=== PATIENT | male | born 1995 | race Caucasian/White ===

== ENCOUNTER 2022-03-02 20:42 | Emergency (ER) | payer OTHER, SELFPAY ==
--- NOTE | ~2022-03-02 | XR_ITS ---
EXAMINATION: XR WRIST, RIGHT CLINICAL INFORMATION: Fall, pain. COMPARISON: None TECHNIQUE: Four views of the right wrist. FINDINGS: Subtle lucency along the distal radius with intra-articular extension raises the possibility of a nondisplaced fracture. No additional osseous abnormalities. Asymmetric soft tissue swelling along the radial surface of the hand and wrist. No unexpected radiopaque foreign bodies. XR/XR wrist RT 2V IMPRESSION: Questionable nondisplaced intra-articular fracture of the distal radius. Correlate for point tenderness. If indicated, consider further evaluation with a CT.
[2022-03-02 20:53] VITALS: BP 103/48; PULSE 95; RESP 18; TEMP 37.3; O2SAT 98; BMI 23.7
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
[2022-03-03] MEDS: Ketorolac Tromethamine 15 MG/ML VIAL 30 MG IM (00:51)
== END 2022-03-03 01:12 | disposition home or self-care (01) ==
PROVIDERS: Emergency Provider Emergency Medicine
DX: S52.501A Unspecified fracture of the lower end of right radius, initial encounter for closed fracture (principal); M79.601 Pain in right arm; V29.408A Other motorcycle driver injured in collision with unspecified motor vehicles in traffic accident, initial encounter; Y93.9 Activity, unspecified; Y92.410 Unspecified street and highway as the place of occurrence of the external cause; Y99.9 Unspecified external cause status
CPT/HCPCS: 73100; 96372; 99283; 99284; J1885

== ENCOUNTER 2022-03-10 | Outpatient (REF) | payer OTHER, SELFPAY ==
--- NOTE | ~2022-03-10 | XR_ITS ---
EXAMINATION: XR wrist RT min 3V CLINICAL INFORMATION: Reason for Exam M25.531 - Pain in right wrist COMPARISON: None. TECHNIQUE: AP, lateral, and oblique views of the wrist FINDINGS: Redemonstration of a subtle intra-articular lucency in the distal radial metaphysis suspicious for a nondisplaced intra-articular distal radial fracture. Joint spaces are maintained without significant degenerative change. No soft tissue abnormality. XR/XR wrist RT min 3V IMPRESSION: Redemonstration of a subtle intra-articular lucency in the distal radial metaphysis suspicious for a nondisplaced intra-articular distal radial fracture.
== END 2022-03-10 00:01 | disposition home or self-care (01) ==
LOC: HO.HOSX
PROVIDERS: Visit Provider Physician Assistant
DX: S52.501A Unspecified fracture of the lower end of right radius, initial encounter for closed fracture (principal)
CPT/HCPCS: 25600; 29085; 73110

== ENCOUNTER 2022-03-17 12:06 | Outpatient (REF) | payer OTHER, SELFPAY ==
--- NOTE | ~2022-03-17 | XR_ITS ---
EXAMINATION: XR WRIST, RIGHT CLINICAL INFORMATION: Right wrist pain COMPARISON: 03/10/2022 TECHNIQUE: PA, lateral, and oblique views of the right wrist. FINDINGS: Again seen are changes of a fracture through the distal radius extending into the joint space. No other fractures are seen. XR/XR wrist RT min 3V IMPRESSION: Distal radial fracture with intra-articular extension.
== END 2022-03-17 12:07 | disposition home or self-care (01) ==
LOC: HO.HOSX 12:06
PROVIDERS: Visit Provider Physician Assistant
DX: S52.501D Unspecified fracture of the lower end of right radius, subsequent encounter for closed fracture with routine healing (principal)
CPT/HCPCS: 29085; 73110

== ENCOUNTER → 2022-04-08 10:41 | Outpatient (BNVA) | payer OTHER, SELFPAY | PROVIDERS: Visit Provider Physician Assistant | DX: S52.501A Unspecified fracture of the lower end of right radius, initial encounter for closed fracture (principal) | CPT/HCPCS: 29085 ==

== ENCOUNTER 2022-04-21 07:07 | Outpatient (REF) | payer OTHER, SELFPAY ==
--- NOTE | ~2022-04-21 | XR_ITS ---
EXAMINATION: XR wrist RT min 3V CLINICAL INFORMATION: Reason for Exam M25.531 - Pain in right wrist COMPARISON: None. TECHNIQUE: AP, lateral, and oblique views of the wrist FINDINGS: Healing intra-articular fracture of the distal radius with decreased conspicuity of the fracture margins, in unchanged alignment. Joint spaces are maintained without significant degenerative change. No soft tissue abnormality. XR/XR wrist RT min 3V IMPRESSION: Healing intra-articular fracture of the distal radius with decreased conspicuity of the fracture margins, in unchanged alignment.
== END 2022-04-21 07:08 | disposition home or self-care (01) ==
LOC: HO.HOSX 07:07
PROVIDERS: Visit Provider Physician Assistant
DX: M25.531 Pain in right wrist (principal)
CPT/HCPCS: 73110

== ENCOUNTER 2022-05-17 13:05 | Emergency (ER) | payer OTHER, SELFPAY ==
--- NOTE | ~2022-05-17 | XR_ITS ---
EXAMINATION: XR LUMBOSACRAL SPINE CLINICAL INFORMATION: Low back pain, heard pop COMPARISON: None TECHNIQUE: AP and lateral views of the lumbar spine and lateral view of the lumbosacral junction. FINDINGS: Vertebral body heights are normal. No fracture or spondylolisthesis. Intervertebral disc heights are maintained without significant degenerative disc disease. Bone mineralization is normal. Soft tissues are unremarkable. Imaged portions of the sacroiliac joints are normal. XR/XR lumbar spine 2-3V IMPRESSION: Normal lumbar spine radiographs
[2022-05-17 13:10] VITALS: BP 138/50; PULSE 90; RESP 18; TEMP 36.9; O2SAT 100; BMI 21.7
--- NOTE | 2022-05-17 13:10 | ED_ITS ---
HPI - Back Pain/Injury General Chief Complaint: Back Pain/Injury <TIA Calderon - Last Filed: 05/17/22 13:13> Stated Complaint: Lower back pain <TIA Calderon - Last Filed: 05/17/22 13:13> Time Seen by Provider: 05/17/22 13:31 <TIA Calderon - Last Filed: 05/17/22 13:13> Source: patient <Sarah Li MD - Last Filed: 05/17/22 14:14> Mode of arrival: ambulatory <Sarah Li MD - Last Filed: 05/17/22 14:14> Limitations: no limitations <Sarah Li MD - Last Filed: 05/17/22 14:14> History of Present Illness HPI Narrative: Patient comes to the emergency room complaining of left-sided back pain that started approximately 4 hours ago, after patient tried having 50+ lb at work. Patient denies any falls, no midline pain. Patient has not taking any medications since this started. Patient denies any urinary/fecal incontinence- retention. Patient is nonradiating, worsened by certain back movements such as straightening up his back <Sarah Li MD - Last Filed: 05/17/22 14:14> Related Data Home Medications: Previous Rx's Medication Instructions Recorded acetaminophen 500 mg tablet 500 mg PO QID PRN fever or pain 05/17/22 #20 tabs cyclobenzaprine 10 mg tablet 10 mg PO TID PRN muscle spasm #7 05/17/22 tabs ketorolac 10 mg tablet 10 mg PO BID PRN pain 5 days #8 05/17/22 tabs <TIA Calderon - Last Filed: 05/17/22 13:13> Allergies/Adverse Reactions: Allergies Allergy/AdvReac Type Severity Reaction Status Date / Time amoxicillin Allergy Unknown Verified 04/21/22 09:39 <TIA Calderon - Last Filed: 05/17/22 13:13> Review of Systems Review of Systems: Constitutional : No Weight loss, No Fever, No Chills, No Night Sweats, No Fatigue, No Malaise ENT/Mouth : No Hearing loss, No Ear Pain, No Nasal Congestion, No Sinus Pain, No Hoarseness, No sore throat, No Rhinorrhea, No Swallowing Difficulty Eyes: No Eye Pain, No Swelling, No Redness, No Foreign Body, No Discharge, No Vision Changes Cardiovascular : No Chest Pain, No SOB, No Dyspnea on Exertion, No Orthopnea, No Edema, No Palpitations Respiratory : No Cough, No Sputum, No Wheezing, No Smoke Exposure, No Dyspnea Gastrointestinal : No Nausea, No Vomiting, No Diarrhea, No Constipation, No abdominal Pain, No Hematochezia, No Melena Genitourinary : no irregular bleeding, No Dysuria, No Urinary Frequency, No Hematuria, No Urinary Incontinence, No Urgency, No Flank Pain, No Urinary Flow Changes, No Hesitancy Musculoskeletal : Complaining of left middle back pain, No joint pain, No Myalgias, No Joint Swelling Skin : No Skin Lesions, No rash Neuro : No Weakness, No Numbness, No Paresthesias, No Loss of Consciousness, No Dizziness, No Headache Psych : No Anxiety/Panic, No Depression, No SI/HI/AH/VH, No Social Issues, Heme/Lymph: No Bruising, No Bleeding,No Lymphadenopathy Endocrine : No Polyuria, No Polydipsia, No Temperature Intolerance <Sarah Li MD - Last Filed: 05/17/22 14:14> [facility] Social History Social History: Social History (Reviewed 04/08/22 @ 10:58 by Vanessa Bui [facility]) Patient Tobacco Use Status: Never used Tobacco Substance Use Type: Marijuana Advance Directives: No Advance Directives Information Provided: No 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, 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 <TAI Calderon - Last Filed: 05/17/22 13:13> Physical Exam Vital Signs: Vital Signs: Last Vital Signs Temp 98.4 F 05/17/22 13:10 Pulse 90 05/17/22 13:10 Resp 18 05/17/22 13:10 BP 138/50 L 05/17/22 13:10 Pulse Ox 100 05/17/22 13:10 O2 Del Method 05/17/22 13:10 BMI result Body Mass Index 21.7 <TIA Calderon - Last Filed: 05/17/22 13:13> Vital Signs: Last Vital Signs Temp 98.4 F 05/17/22 13:10 Pulse 90 05/17/22 13:10 Resp 18 05/17/22 13:10 BP 138/50 L 05/17/22 13:10 Pulse Ox 100 05/17/22 13:10 O2 Del Method 05/17/22 13:10 BMI result Body Mass Index 21.7 <Sarah Li MD - Last Filed: 05/17/22 14:14> Const: Other: Appearance: Alert. Oriented X3. No acute distress. Eyes: Pupils equal, round and reactive to light. ENT: Pharynx normal. Neck: Normal inspection. Neck supple. No lymph nodes noted. No crepitus CVS: Normal heart rate and rhythm. Pulses normal. Normal S1 and S2 Respiratory: No respiratory distress. Breath sounds normal. No Wheezing. No rales Abdomen: Soft and nontender. No rigidity. No distention. Back: No pain to palpation in cervical/thoracic/lumbar spine. Pain to palpation along the paraspinal muscles on the left side, actively spasming Skin: Skin warm and dry. Normal skin color. Normal skin turgor. Extremities: No lower extremity edema. No Lacerations. No Rash Neuro: Oriented X 3. No motor deficit. No sensory deficit. Moving all extremities. No slurred speech. CN 2 through 12 grossly intact Psych: calm, cooperative, normal affect <Sarah Li MD - Last Filed: 05/17/22 14:14> Course Course Course Narrative: RME-- 27yo M w/no sig PMHx c/o R sided low back pain and hearing pop s/p heavy lifting at work. Denies radiation of pain, incontinence or retention, dysuria/hematuria No midline ttp, R MSK lumbar tenderness elicited. Ambulating with steady gait Lumbar x-ray ordered <TIA Calderon - Last Filed: 05/17/22 13:13> Medical Decision Making Medical Decision Making [facility] Narrative: Patient likely having a musculoskeletal injury of the paraspinal muscles. Patient given IM Toradol and cyclobenzaprine p.o. <Sarah Li MD - Last Filed: 05/17/22 14:14> Differential Diagnosis Differential Diagnoses: The differential diagnosis associated with the presentation includes (Pulled muscle, herniated disc) <Sarah Li MD - Last Filed: 05/17/22 14:14> Independent Interpretation I performed an independent interpretation of an: Plain X-Ray (Thoracic spine/coccyx x-ray normal alignment, no fractures) <Sarah iL MD - Last Filed: 05/17/22 14:14> Radiology Impression Discussion of test interpretation with radiology: I have reviewed the radiologist's reading. <Sarah Li MD - Last Filed: 05/17/22 14:14> Radiologist Impression: FINDINGS: Vertebral body heights are normal. No fracture or spondylolisthesis. Intervertebral disc heights are maintained without significant degenerative disc disease. Bone mineralization is normal. Soft tissues are unremarkable. Imaged portions of the sacroiliac joints are normal. XR/XR lumbar spine 2-3V IMPRESSION: Normal lumbar spine radiographs <Sarah Li MD - Last Filed: 05/17/22 14:14> Discharge Plan Discharge Clinical Impression: Back strain <TIA Calderon - Last Filed: 05/17/22 13:13> Patient Disposition: Home, Self-Care <TIA Calderon - Last Filed: 05/17/22 13:13> Instructions: Thoracic Back Strain (ED) <TIA Calderon - Last Filed: 05/17/22 13:13> Additional Instructions: Please follow-up with your primary care physician and with work connection tomorrow. If you have any worsening or new symptoms, please return to the emergency room or call 911 <TIA Calderon - Last Filed: 05/17/22 13:13> Prescriptions: New ketorolac 10 mg tablet 10 mg PO BID PRN (Reason: pain) 5 Days Qty: 8 0RF Rx Instructions: Do not use ibuprofen/naproxen/NSAIDs. Only use Tylenol if needed cyclobenzaprine 10 mg tablet 10 mg PO TID PRN (Reason: muscle spasm) Qty: 7 0RF acetaminophen 500 mg tablet 500 mg PO QID PRN (Reason: fever or pain) Qty: 20 0RF <TIA Calderon - Last Filed: 05/17/22 13:13> Stand Alone Forms: Work/School Release <TIA Calderon - Last Filed: 05/17/22 13:13>
[2022-05-17] MEDS: Ketorolac Tromethamine 60 MG/2 ML VIAL IM (14:23)
[2022-05-17] MEDS: Cyclobenzaprine HCl 10 MG TABLET PO (14:23)
== END 2022-05-17 14:35 | disposition home or self-care (01) ==
PROVIDERS: Emergency Provider Emergency Medicine
DX: S39.012A Strain of muscle, fascia and tendon of lower back, initial encounter (principal); X50.0XXA Overexertion from strenuous movement or load, initial encounter; Y93.E9 Activity, other interior property and clothing maintenance; Y92.511 Restaurant or cafe as the place of occurrence of the external cause; Y99.0 Civilian activity done for income or pay
CPT/HCPCS: 72100; 96372; 99283; 99284; J1885

== ENCOUNTER 2024-06-05 08:45 | Outpatient (REF) | payer OTHER, SELFPAY ==
--- NOTE | ~2024-06-05 | XR_ITS ---
CLINICAL HISTORY: M25.569 - Pain in unspecified knee 2 views left knee, 1 view right knee Comparison: None Findings: Standing AP right knee: Medial and lateral knee compartments preserved. Standing AP, sunrise views left knee: No fractures, subluxations or dislocations. Joint intervals are preserved. No osteochondral lesions or loose bodies. Normal patellar alignment. Normal bone mineralization and soft tissues. No unusual radiopaque foreign body. Impression: 1. Normal left knee. 2. Normal AP view right knee. This document has been electronically signed by: Shine Pennington MD on 06/05/2024 11:59:10
--- OUTSIDE RECORDS SUMMARY | 2024-06-06 09:37 | XMS_ITS | Encounter Summary ---
Author Organization [facility] Address [address] [place] [address] Care Team Providers Care Educational Technology Specialist Name Role Phone Physician, No Pcp Primary Care Provider Unavaila ble Reason for Referral * Consultation (Routine) - Pending Review Specialty Diagnoses / Procedures Referred By Suri benz Referred To Contact Orthopaedics / Orthopaedic Surgery Diagnoses Acute pain of left knee Loretta Ferrer PA [address] [place] [address] Referral ID Status Reason Start Date Expiration Date Visits Requested Visits Authorized [id number] Pending Review Specialty Services Required 05/21/2024 05/21/2025 1 1 Reason for Visit * Reason Comments Knee Pain C/o Left knee pain a fter slip and fall ice fishing- onset yesterdaY Encounter Details Date Type Department Care Team (Late st Contact Info) Description 05/21/2024 10:37 AM EST - 05/21/2024 11:[address] [facility] Emergency [address] [place] [id number] Acute pain of left knee (Primary Dx) [...] Signed Date: 05/21/2024 10:21 ET Workstation ID: [id number] Transcribed By: Self Edit Transcribed Date: 05/21/2024 [...] Laterality Modality Lower Extremities, Knee Left [facility] Imaging 05/21/2024 9:59 AM EST Impressions 05/21/2024 10:21 AM EST FINDINGS/IMPRESSION: Joint spaces are preserved. ??No fracture or dislocation. ??No focal soft tissue swelling. ??Small joint effusion.. -------- FINAL REPORT -------- Dictated By: GRACE FAM Dictated Date: 05/21/2024 09:59 ET Assigned Physician: GRACE FAM Reviewed and Electronically Signed By: GRACE FAM Signed Date: 05/21/2024 10:21 ET Workstation ID: [id number] Transcribed By: Self Edit Transcribed Date: 05/21/2024 [...] Signed Date: 05/21/2024 10:21 ET Workstation ID: [id number] Transcribed By: Self Edit Transcribed Date: 05/21/2024 09:59 ET Rowdy Garcia MD IMG XR PROCEDURES documented in this encounter Visit Diagnoses Diagnosis Acute pain of left knee- Primary documented in this encounter Care Teams Educational Technology Specialist Relationship Specialty Start Date End Date Physician, No Pcp PCP - General 05/21/24 documented as of this encounter
--- OUTSIDE RECORDS SUMMARY | 2024-06-06 09:37 | XMS_ITS | Clinical Summary ---
Author Organization [facility] Address [address] [place] [address] Phone Care Team Providers Care Appraiser Art Name Role Phone Physician, No Pcp Primary Care Provider Unavaila ble Allergies Active Allergy Reactions Criticality Noted Date Comments Amoxicillin Unknown 05/21/2024 Medications Medication Sig Dispensed Refills Start Date End Date Status naproxen (NAPROSYN) 500 mg tablet Take 1 tablet (500 mg total) by mouth 2 (two) times a day with meals for 15 days. 30 tablet 05/21/2024 06/05/2024 Encounters Date Type Department Care Team Description 05/21/2024 10:37 AM EST - 05/21/2024 11:42 AM EST Emergency [facility] Emergency [address] [place] [address] Acute pain of left knee [...] - 19+ 3-dose series) 02/27/2015 COVID-19 Vaccine ( - 2023-2 5 season) 2024 Influenza Vaccine [...] Laterality Modality Lower Extremities, Knee Left [facility] Imaging 05/21/2024 9:59 AM EST Impressions 05/21/2024 10:21 AM EST FINDINGS/IMPRESSION: Joint spaces are preserved. ??No fracture or dislocation. ??No focal soft tissue swelling. ??Small joint effusion.. -------- FINAL REPORT -------- Dictated By: GRACE LEE Dictated Date: 05/21/2024 09:59 ET Assigned Physician: GRACE LEE Reviewed and Electronically Signed By: GRACE LEE Signed Date: 05/21/2024 10:21 ET Workstation ID: [id number] Transcribed By: Self Edit Transcribed Date: 05/21/2024 [...] Signed Date: 05/21/2024 10:21 ET Workstation ID: [id number] Transcribed By: Self Edit Transcribed Date: 05/21/2024 09:59 ET Rowdy Garcia MD IMG XR PROCEDURES from Last 3 Months Care Teams Appraiser Art Relationship Specialty Start Date End Date Physician, No Pcp PCP - General 05/21/24
--- OUTSIDE RECORDS SUMMARY | 2024-06-06 09:37 | XMS_ITS | Data Portability ---
Author Organization [facility] [address] Address [address] [place] [address] Care Team Providers Care Fibre Technologist Name Role Phone DEEPA PEREZ Superintendent [employer] DEEPA PEREZ Superintendent [employer] DEEPA PEREZ Superintendent [employer] Assessment No assessment recorded. Plan of Treatment Reminders Order Date Submit Date Provider Last Modified By Organization Details Last Modified Time Details Appointments None recorded. Lab None recorded. Referral None recorded. Procedures None recorded. Surgeries None recorded. Imaging None recorded. Medication Orders prednisone 10 mg tablet 2022 024 [id number], [address] [place], [address], 4 12:21:41 prednisone 20 mg tablet 2023 024 [id number] [address] [place], [address], 4 08:55:50 prednisone 10 mg tablet 2023 024 [facility], [address] [place], [address], 4 09:17:50 hydroxyzine HCl 25 mg tablet 2023 024 [facility], [address] [place], [address], 4 09:17:51 Patient TargetsNo targets recorded. Patient Instructions Encounter Date Encounter Id Patient Instructions Last Modified By Organization Details Last Modified Time 06/04/2022 [id number] Drink lots of fluids. Take medications as [...] Department. [email or web address] Not available 06/04/2022 16:18:39 12/31/2022 [id number] poison [place], [place], [place]: care instructions [email or web address] Not available 12/31/2022 15:43:46 poison [place] education Not available 12/31/2022 15:43:46 Take the prednisone [...] chills, spreading skin redness or purulent drainage. [email or web address] Not available 12/31/2022 15:45:28 10/03/2023 [id number] poison [place], [place], and [place]: care instructions [email or web address] Not available 10/03/2023 14:19:41 poison [place] education [email or web address] Not available 10/03/2023 14:19:41 You can take ove r the counter tylenol or ibuprofen per package instructions for the pain. See printed instructions. Follow-up with your doctor if no improvement in 1 week. Seek Emergency Medical evaluation for any worsening symptoms. [email or web address] Not available 10/03/2023 14:21:21 Reason for Referral None Reported. Problems Name Problem SNOMED Code Status Onset Date Resolution Date Notes Provider Name and Address Organization Details Recorded Time Contact dermatitis caused by urushiol from [place] poison [place] [id number] Active 024 Jose Horowitz, STRUCTURAL STEEL FITTER [address] [place], [address] , [place] - [facility] 4 09:09:21 [...] Name and Address Organization Details Recorded Time [id number] amoxicill in medicatio n Not available Not available unabletoasse ss 06/04/2022 723 RxNorm DUC BENNIE [facility], [place] - [facility] 3 15:45:08 [...] Details Last Updated DateTime 12/31/2022 21.8 kg/m2 17344.74 g Silvana Lang PA - [facility] [...] Details Last Updated DateTime 10/03/2023 22.4 kg/m2 19834.7 g Christine Lewis PA - [facility] [...] Details Last Updated DateTime 06/04/2022 21.8 kg/m2 90958.74 g DUC AVERY PA - [facility] [...] Details Last Updated DateTime 11/17/2023 23.1 kg/m2 18473.66 g Queta Kelly [facility] - [facility] [...] Had A Flu Shot This Season? No [email or web address] Information not available 11/17/2023 Have You Had Direct Contact, Or Contact During Intimacy, With Monkeypox Rash, Scabs, Or Body Fluids From A Person With Monkeypox? No Information not available 10/03/2023 What Was The Date Of Your Most Recent Tobacco Screening? 11/17/2023 [email or web address] Information not available 11/17/2023 What Is Your [...] SNOMED-CT Code Diagnosis ICD10 Code Diagnosis Note [id number] [address] [place] [address] 10/19/2020 13:41:28 10/19/2020 15:30:57 [id number] [address] [place] [place] [address] 11/21/2020 12:10:07 11/21/2020 15:09:56 [id number] [place] [address] [place] [address] 06/04/2022 14:28:32 06/04/2022 16:24:30 Acute low back pain 509658086 M54.50 feeling much better . able to return full duty back to work. [id number] Eliana Betancourt [place] [address] [place] [address] 12/31/2022 14:37:39 12/31/2022 15:47:31 Contact dermatitis caused by urushiol from [place] poison [place] 293080822 L25.5 [id number] IVAN GARCIA MD [address] [place] [address] 10/03/2023 11:58:55 10/03/2023 14:23:45 Contact dermatitis caused by urushiol from [place] 747420974 L25.5 Benadryl Gel for itching:Ap ply to affected area 3 times a day as needed for itching for 3-5 days. [id number] [place] Horowitz [place] [address] [place] [address] 11/17/2023 08:51:17 11/17/2023 09:19:05 Contact dermatitis caused by urushiol from [place] poison [place] 318654538 L25.5 Poison [place] mac Rash The contact dermatitis usually follows [...] exposure; erythema, edema, vesicles, bullae, weeping, and crusting.?Nishant matitis usually responds to 7 to 21 days' therapy Important instructio ns to follow:?- Avoid further irritation of the skin where you have contact dermatitis . Health Concerns Section Related Observation LastModified by Organization Detai ls LastModified Time None Recorded Concern Status LastModified by Organization Details LastModified Time None Recorded Advance Directives Directive None Recorded Payers Encounter Date Sequence Insurance Name Policy Number Policy Jameson Covered Member ID Jameson Member ID Guarantor Name 11/21/2020 1 [employer] (PPO) Ralf Saleh [id number] Ralf Saleh 06/04/2022 1 [employer] John Saleh 12/31/2022 1 [facility] - [employer] - C[employer] (PPO) Ralf Saleh [id number] Ralf Saleh 10/03/2023 1 [employer] [facility] Ralf Saleh [id number] Ralf Saleh 11/17/2023 1 [employer] - [facility] (PPO) [id number] Ralf Saleh [id number] Ralf Saleh Notes Date Note Type Note [...] Jose Horowitz NP [address] [place], [address], [place] - [facility] 06/04/2022 16:20:38 3 [...] or red streaking. Eliana Betancourt MD [address] [place], [address], [place] - [facility] 12/31/2022 15:50:50 4 text/html 28 yo male was weed whacking 4 days ago and a rash developed on his arms and legs 3 days ago. The rash is Increasing spread and itching. IVAN GARCIA MD [address] [place], [address], [place] - [facility] 10/04/2023 17:17:37 4 text/html UC Rash/Skin LesionReported bypatient.source of patient [...] Jose Horowitz NP [address] [place], [address], [place] - [facility] 11/28/2023 13:30:38
== END 2024-06-05 08:46 | disposition home or self-care (01) ==
LOC: HO.HOSX 08:45
PROVIDERS: Visit Provider Physician Assistant
DX: M25.562 Pain in left knee (principal); M23.92 Unspecified internal derangement of left knee; M25.462 Effusion, left knee
CPT/HCPCS: 20610; 73560

== ENCOUNTER 2024-06-05 09:05 | Outpatient (AMB) | payer OTHER, SELFPAY ==
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
[2024-06-05 09:20] VITALS: BMI 24.4
--- OUTSIDE RECORDS SUMMARY | 2024-06-05 09:32 | XMS_ITS | Clinical Summary ---
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 30 tablet 05/21/2024 06/05/2024 Active Encounters Date Type Department Care Team Description 05/21/2024 10:37 AM EST - 05/21/2024 11:42 AM EST Emergency [facility] Emergency [address] [place] [address] Acute pain of left knee (Primary Dx) Discharge Disposition: Home or Self Care from Last 3 Months Medical History Medical History Date Comments Known health problems: none Social History Tobacco Use Types Packs/Day Years Used Date Smoking Tobacco: Never Assessed Sex and Gender Information Value Date Recorded Sex Assigned at Not on file Gender Identity Not on file Sexual Orientation Not on file Job Start Date Occupation Industry Not on file Not on file Not on file Obstetrics History Last Filed Vital Signs Vital Sign Reading Time Taken Comments Blood Pressure 119/63 05/21/2024 9:42 AM EST Pulse 80 05/21/2024 9:42 AM EST Temperature 36.8 ??C (98.2 ??F) 05/21/2024 9:42 AM ES T Respiratory Rate 18 05/21/2024 9:42 AM EST Oxygen Saturation 99% 05/21/2024 9:42 AM EST Inhaled Oxygen Concentration - - Weight 77.1 kg (170 lb) 05/21/2024 9:42 AM EST Height 185.4 cm (6' 1 ) 05/21/2024 9:42 AM EST Body Mass Index 22.43 05/21/2024 9:42 AM EST Plan of Treatment Health Maintenance Due Date Last Done Comments Hepatitis B Vaccines (1 of 3 - 19+ 3-dose series) 02/27/2015 COVID-19 Vaccine (1 - 2023-2 5 season) 2024 Influenza Vaccine (#1) 2024 Depression Screening 05/21/2024 HIV Screening 05/21/2024 Hepatitis C Screening 05/21/2024 Social Influencers of Health Screening 05/21/2024 DTaP,Tdap,and Td Vaccines (2 - Td or Tdap) 10/19/2030 10/19/2020 HIB Vaccines Aged Out No longer eligi ble based on patient's age to complete this topic HPV Vaccines Aged Out No longer eligi ble based on patient's age to complete this topic Hepatitis A Vaccines Aged Out No long er eligible based on patient's age to complete this topic IPV Vaccines Aged Out No longer eligi ble based on patient's age to complete this topic MMR Vaccines Aged Out No longer eligi ble based on patient's age to complete this topic Meningococcal ACWY Vaccine Aged Out N o longer eligible based on patient's age to complete this topic Pneumococcal Vaccine: Pediat rics (0 to 5 Years) and At-Risk Patients (6 to 64 Years) Aged Out No longer eligi ble based on patient's age to complete this topic RSV Immunization Patients Un kathleen 20 months Aged Out No longer eligible b ased on patient's age to complete this topic Varicella Vaccines Aged Out No longer eligible based on patient's age to complete this topic Procedures Procedure Name Priority Date/Time Associated Diagnosis Comments XR KNEE 4+ VIEWS LEFT STAT 05/21/2024 9:57 AM EST from Last 3 Months Results * XR Knee 4+ Views Left (05/21/2024 9:57 AM EST) Anatomical Region Laterality Modality Lower Extremities, Knee Left [facility] 05/21/2024 9:59 AM EST Impressions 05/21/2024 10:21 AM EST FINDINGS/IMPRESSION: Joint spaces are preserved. ??No fracture or dislocation. ??No focal soft tissue swelling. ??Small joint effusion.. -------- FINAL REPORT -------- Dictated By: GRACE LEE Dictated Date: 05/21/2024 09:59 ET Assigned Physician: GRACE LEE Reviewed and Electronically Signed By: GRACE LEE Signed Date: 05/21/2024 10:21 ET Workstation ID: [id number] Transcribed By: Self Edit Transcribed Date: 05/21/2024 09:59 ET Narrative 05/21/2024 10:21 AM EST XR KNEE 4+ VIEWS LEFT INDICATION: ??Pain TECHNIQUE: XR KNEE 4+ VIEWS LEFT COMPARISON: No priors available. Procedure Note Grace Lee MD - 05/21/2024 XR KNEE 4+ VIEWS LEFT INDICATION: Pain TECHNIQUE: XR KNEE 4+ VIEWS LEFT COMPARISON: No priors available. IMPRESSION: FINDINGS/IMPRESSION: Joint spaces are preserved. No fracture ordislocation. No focal soft tissue swelling. Small joint effusion.. -------- FINAL REPORT -------- Dictated By: GRACE LEE Dictated Date: 05/21/2024 09:59 ET Assigned Physician: GRACE LEE Reviewed and Electronically Signed By: GRACE LEE Signed Date: 05/21/2024 10:21 ET Workstation ID: [id number] Transcribed By: Self Edit Transcribed Date: 05/21/2024 09:59 ET Rowdy Garcia MD IMG XR PROCEDURES from Last 3 Months Care Teams Senior Piping Designer Relationship Specialty Start Date End Date Physician, No Pcp PCP - General 05/21/24
--- OUTSIDE RECORDS SUMMARY | 2024-06-05 09:32 | XMS_ITS | Data Portability ---
Author Organization [facility], [address] Address [address] [place] [address] Care Team Providers Care [employer] Name Role Phone DEEPA PEREZ [employer] Middleware Developer DEEPA PEREZ [employer] Middleware Developer DEEPA PEREZ [employer] Middleware Developer Assessment No assessment recorded. Plan of Treatment Reminders Order Date Submit Date Provider Last Modified By Organization Details Last Modified Time Details Appointments None recorded. Lab None recorded. Referral None recorded. Procedures None recorded. Surgeries None recorded. Imaging None recorded. Medication Orders prednisone 10 mg tablet 2022 024 [id number], [address] [place], [address], 4 12:21:41 prednisone 20 mg tablet 2023 024 [id number] [address] [place], [address], 4 08:55:50 prednisone 10 mg tablet 2023 024 [id number], [address] [place], [address], 4 09:17:50 hydroxyzine HCl 25 mg tablet 2023 024 [id number], [address] [place], [address], 4 09:17:51 Patient TargetsNo targets recorded. Patient Instructions Encounter Date Encounter Id Patient Instructions Last Modified By Organization Details Last Modified Time 06/04/2022 [id number] Drink lots of fluids. Take medications as prescribed. Do not do any activities that exacerbate your pain. Take walks and change positions frequently. Do not lie in bed all day. Light movement is helpful for recovery of the back. Use a heating pad or warm compress on the painful area of the back. A lidocaine patch can be used for topical relief. This is available over the counter. Once pain is improved, do back exercises to stretch and strengthen the back. If you develop severe pain, fevers/chills, weakness of limbs, loss of sensation in groin, or loss of control of bowel or bladder functions call 911 or go to the Emergency Department. [email or web address] Not available 06/04/2022 16:18:39 12/31/2022 [id number] poison [place], [place], and [place]: care instructions [email or web address] Not available 12/31/2022 15:43:46 poison [place] education [email or web address] Not available 12/31/2022 15:43:46 Take the prednisone as prescribed. Over the counter benadryl may be taken per package instructions for itching. Topical calamine lotion may also be used for itching. See printed instructions. Follow-up with your doctor if no improvement in a few days. Seek Emergency Medical evaluation for any worsening symptoms, particularly for lip or tongue swelling, trouble breathing, high fever, shaking chills, spreading skin redness or purulent drainage. [email or web address] Not available 12/31/2022 15:45:28 10/03/2023 [id number] poison [place], [place], and [place]: care instructions [email or web address] Not available 10/03/2023 14:19:41 poison [place] education [id number] Not available 10/03/2023 14:19:41 You can take ove r the counter tylenol or ibuprofen per package instructions for the pain. See printed instructions. Follow-up with your doctor if no improvement in 1 week. Seek Emergency Medical evaluation for any worsening symptoms. [email or web address] Not available 10/03/2023 14:21:21 Reason for Referral None Reported. Problems Name Problem SNOMED Code Status Onset Date Resolution Date Notes Provider Name and Address Organization Details Recorded Time Contact dermatitis caused by urushiol from [place] poison [place] [id number] Active 024 Jose Horowitz, ELECTRONICS SPECIALIST [address] [place], [address] [place] - [facility] 4 09:09:21 Problem Notes None recorded. Procedures Surgical History Date Name Laterality Status Provider Name and Address Organization Details Recorded Time procedure on ear completed DUC BENNIE PA - [facility] 06/04/2022 15:47:08 Imaging Results None recorded. Procedure Notes None recorded. Medical Equipment None Reported. Allergies Allergen ID Allergen Name Allergen Category Reaction Reaction Severity Criticality Documentation Date Start Date Code Code System Note Provider Name and Address Organization Details Recorded Time [id number] amoxicill in medicatio n Not available Not available unabletoasse ss 06/04/2022 723 RxNorm DUC BENNIE [facility], [place] - [facility] 3 15:45:08 Medications Name Sig Start Date Stop Date Status Note LastModified by Organization Details LastModified Time cyclobenzap rine 10 mg tablet TAKE 1 TABLET BY MOUTH THREE TIMES A DAY NEEDED FOR MUSCLE SPAMS 06/04 completed Not Available Not Available Not Available prednisone 10 mg tablet PLEASE SEE ATTACHED FOR DETAILED DIRECTION S active Not Available Not Available No t Available prednisone 20 mg tablet TAKE 3 TABLETS EVERY DAY BY ORAL ROUTE IN THE MORNING FOR 5 DAYS, FOR POISON [place] RASH. active Not Available Not Available No t Available ketorolac 10 mg tablet TAKE 1 TABLET TWICE A DAY NEEDED FOR PAIN FOR 5 DAYS. DO NOT USE IBUPROFEN /NAPROXEN / NSAIDS 06/04 completed Not Available Not Available Not Available hydroxyzine HCl 25 mg tablet TAKE 1 TABLET 3 TIMES A DAY BY ORAL ROUTE NEEDED FOR 7 DAYS, FOR ITCHY RASH. active Not Available Not Available No t Available Vitals Date Recorded Body height Provider Name an d Address Organization Details Last Updated DateTime 12/31/2022 185.42 cm Silvana Lang PA - [facility] 12/31/2022 14:59:45 Date Recorded Body mass index (BMI) Body weight Provider Name and Address Organization Details Last Updated DateTime 12/31/2022 21.8 kg/m2 68581.74 g Silvana Lang PA - [facility] 12/31/2022 14:59:54 Date Recorded Respiratory rate Provider Name a nd Address Organization Details Last Updated DateTime 12/31/2022 18 /min Silvana Lang PA - [facility] 12/31/2022 15:00:28 Date Recorded Body temperature Provider Name a nd Address Organization Details Last Updated DateTime 12/31/2022 98 [degF] Silvana Lang PA - [facility] 12/31/2022 15:00:31 Date Recorded Heart rate Provider Name an d Address Organization Details Last Updated DateTime 12/31/2022 64 /min Silvana Lang PA - [facility] 12/31/2022 15:00:35 Date Recorded Pain severity - 0-10 verbal numeric rating [Score] - Reported Provider Name and Address Organization Details Last Updated DateTime 12/31/2022 0 Silvana Lang PA - [facility] 12/31/2022 15:00:40 Date Recorded Oxygen saturation Oxygen saturation in Arterial blood by Pulse oximetry Provider Name and Address Organization Details Last Updated DateTime 12/31/2022 100 % 100 % Silvana Lang PA - [facility] 12/31/2022 15:00:44 Date Recorded Body height Provider Name an d Address Organization Details Last Updated DateTime 10/03/2023 185.42 cm Christine Lewis PA - [facility] 10/03/2023 12:22:22 Date Recorded Body mass index (BMI) Body weight Provider Name and Address Organization Details Last Updated DateTime 10/03/2023 22.4 kg/m2 02024.7 g Christine Lewis PA - [facility] 10/03/2023 12:22:32 Date Recorded Pain severity - 0-10 verbal numeric rating [Score] - Reported Provider Name and Address Organization Details Last Updated DateTime 10/03/2023 0 Christine Lewis PA - [facility] 10/03/2023 12:23:01 Date Recorded Body temperature Provider Name a nd Address Organization Details Last Updated DateTime 10/03/2023 98.4 [degF] Christine Lewis PA - [facility] 10/03/2023 12:23:29 Date Recorded Respiratory rate Provider Name a nd Address Organization Details Last Updated DateTime 10/03/2023 18 /min Christine Lewis PA - [facility] 10/03/2023 12:23:31 Date Recorded Heart rate Provider Name an d Address Organization Details Last Updated DateTime 10/03/2023 78 /min Christine Lewis PA - [facility] 10/03/2023 12:23:34 Date Recorded Oxygen saturation Oxygen saturation in Arterial blood by Pulse oximetry Provider Name and Address Organization Details Last Updated DateTime 10/03/2023 98 % 98 % Christine Lewis PA - [facility] 10/03/2023 12:23:38 Date Recorded Body height Provider Name an d Address Organization Details Last Updated DateTime 06/04/2022 185.42 cm DUC AVERY PA - [facility] 06/04/2022 15:44:45 Date Recorded Body mass index (BMI) Body weight Provider Name and Address Organization Details Last Updated DateTime 06/04/2022 21.8 kg/m2 55799.74 g DUC AVERY PA - [facility] 06/04/2022 15:44:48 Date Recorded Pain severity - 0-10 verbal numeric rating [Score] - Reported Provider Name and Address Organization Details Last Updated DateTime 06/04/2022 0 DUC AVERY PA - [facility] 06/04/2022 15:44:55 Date Recorded Respiratory rate Provider Name a nd Address Organization Details Last Updated DateTime 06/04/2022 19 /min DUC AVERY PA - [facility] 06/04/2022 15:44:56 Date Recorded Oxygen saturation Oxygen saturation in Arterial blood by Pulse oximetry Provider Name and Address Organization Details Last Updated DateTime 06/04/2022 99 % 99 % DUC AVERY PA - [facility] 06/04/2022 15:47:46 Date Recorded Heart rate Provider Name an d Address Organization Details Last Updated DateTime 06/04/2022 79 /min DUC AVERY PA - [facility] 06/04/2022 15:47:49 Date Recorded Body temperature Provider Name a nd Address Organization Details Last Updated DateTime 06/04/2022 98.7 [degF] DUC AVERY PA - [facility] 06/04/2022 15:48:04 Date Recorded Body height Provider Name an d Address Organization Details Last Updated DateTime 11/17/2023 185.42 cm Queta Kelly PA - [facility] 11/17/2023 08:55:29 Date Recorded Body mass index (BMI) Body weight Provider Name and Address Organization Details Last Updated DateTime 11/17/2023 23.1 kg/m2 49459.66 g Queta Kelly [facility] - [facility] 11/17/2023 08:55:36 Date Recorded Pain severity - 0-10 verbal numeric rating [Score] - Reported Provider Name and Address Organization Details Last Updated DateTime 11/17/2023 0 Queta Kelly PA - [facility] 11/17/2023 08:57:03 Date Recorded Oxygen saturation Oxygen saturation in Arterial blood by Pulse oximetry Provider Name and Address Organization Details Last Updated DateTime 11/17/2023 98 % 98 % Queta Kelly PA - [facility] 11/17/2023 08:57:17 Date Recorded Heart rate Provider Name an d Address Organization Details Last Updated DateTime 11/17/2023 85 /min Queta Kelly PA - [facility] 11/17/2023 08:57:19 Date Recorded Respiratory rate Provider Name a nd Address Organization Details Last Updated DateTime 11/17/2023 18 /min Queta Kelly PA - [facility] 11/17/2023 08:57:20 Date Recorded Body temperature Provider Name a nd Address Organization Details Last Updated DateTime 11/17/2023 98.8 [degF] Queta Kelly PA - [facility] 11/17/2023 08:57:27 Date Recorded Systolic blood pressure Diastolic blood pressure Provider Name and Address Organization Details Last Updated DateTime 12/31/2022 118 mm[Hg] 78 mm[Hg] Silvana Lang PA - [facility] 12/31/2022 15:00:53 Date Recorded Systolic blood pressure Diastolic blood pressure Provider Name and Address Organization Details Last Updated DateTime 10/03/2023 119 mm[Hg] 71 mm[Hg] Christine Lewis PA - [facility] 10/03/2023 12:23:48 Date Recorded Systolic blood pressure Diastolic blood pressure Provider Name and Address Organization Details Last Updated DateTime 06/04/2022 109 mm[Hg] 65 mm[Hg] DUC AVERY PA - [facility] 06/04/2022 15:49:00 Date Recorded Systolic blood pressure Diastolic blood pressure Provider Name and Address Organization Details Last Updated DateTime 11/17/2023 100 mm[Hg] 54 mm[Hg] Queta Kelly PA - [facility] 11/17/2023 08:57:11 Social History Question Answer Notes LastModified by Organizat ion Details LastModified Time Tobacco Smoking Status Never Smoker DUC renee, [place] - [facility] 06/04/2022 15:46:41 What Is Your Level Of Alcohol Consumption? Occasional Information not available 10/03/2023 How Many Times Per Week Do You Consume Alcohol? Less Than 1 Time Per Week Information not available 10/03/2023 Are You Currently Employed? Yes [employer] Information not available 06/04/2022 Have You Had A Flu Shot This Season? No [email or web address] Information not available 11/17/2023 Have You Had Direct Contact, Or Contact During Intimacy, With Monkeypox Rash, Scabs, Or Body Fluids From A Person With Monkeypox? No Information not available 10/03/2023 What Was The Date Of Your Most Recent Tobacco Screening? 11/17/2023 [email or web address] Information not available 11/17/2023 What Is Your Relationship Status? Other Girl Friend Information not available 10/03/2023 Do You Use Any Illicit Or Recreational Drugs? No Information not available 06/04/2022 Have You Recently Traveled Abroad? No Information not available 06/04/2022 Are You Currently In School? No Information not available 10/03/2023 Do You Or Have You Ever Used Any Other Forms Of Tobacco Or Nicotine? No Information not available 10/03/2023 Sex: Unknown Functional Status None recorded. Mental Status None recorded. Family History Nothing Reported. Medical History No medical history recorded. Immunizations Vaccine Type Date Status Note Provider Nam e and Address Organization Details Recorded Time Tdap 10/19/2020 completed TIA Murguia - [facility] 12/31/2022 15:01:01 Past Encounters Encounter ID Performer Location Encounter Start Date Encounter Closed Date Diagnosis/Indication Diagnosis SNOMED-CT Code Diagnosis ICD10 Code Diagnosis Note [id number] [address] [facility] [place] [address] 10/19/2020 13:41:28 10/19/2020 15:30:57 [id number] [address] [place] [facility] [place] [address] 11/21/2020 12:10:07 11/21/2020 15:09:56 [id number] [place] [address] [place] [facility] [place] [address] 06/04/2022 14:28:32 06/04/2022 16:24:30 Acute low back pain 154944001 M54.50 feeling much better . able to return full duty back to work. [id number] Eliana Betancourt MD [address] [facility] [place] [address] 12/31/2022 14:37:39 12/31/2022 15:47:31 Contact dermatitis caused by urushiol from [place] [id number] L25.5 [id number] IVAN GARCIA MD [address] [place] [address] 10/03/2023 11:58:55 10/03/2023 14:23:45 Contact dermatitis caused by urushiol from [place] [id number] L25.5 Benadryl Gel for itching:Ap ply to affected area 3 times a day as needed for itching for 3-5 days. [id number] [place] [address] [facility] [place] [address] 11/17/2023 08:51:17 11/17/2023 09:19:05 Contact dermatitis caused by urushiol from [place] [id number] L25.5 Poison [place] mac Rash The contact dermatitis usually follows direct exposure with skin contact with the antigenic oleoresins (urushiols ) or the sap of the plant. Most cases follow direct exposure during outdoor activities such as walking, hiking, or camping, and may also be carried on the fur of domestic pets or livestock, clothing, forestry equipment, gardening tools, and even family members. The antigen is heat-marian ant and can be transporte d by smoke from burning plants. Poison [place] Dermatitis usually clearly demarcated with sharp edges to the rash and linear distributi on of blisters where the plant has brushed against the skin.Palm prints of dermatitis may be seen if patients spread the dermatitis by self-conta ct. A generalize d erythema may be seen if there has been extensive exposure. Symptoms: Itch of the Rash: Some patients will complain significan tly of itch with minimal signs, while others will tolerate extensive dermatitis . Very itchy rashes are more likely to become secondaril y infected from excessive scratching and therefore may be treated as moderate to minimize this risk. Extent of disease: from a small localized area on one limb (mild end of spectrum) to extensive disease involving >30% of body area (severe). Severity of the dermatitis : mild erythema only (mild dermatitis ) to large bullae formation (severe). Duration of dermatitis : 1-2 days to 10-20 days (mild to severe). Signs of acute dermatitis develop 24 to 72 hours after exposure; erythema, edema, vesicles, bullae, weeping, and crusting.? ??Dermat itis usually responds to 7 to 21 days' therapy Important instructio ns to follow:??? - Avoid further irritation of the skin where you have contact dermatitis . Health Concerns Section Related Observation LastModified by Organization Detai ls LastModified Time None Recorded Concern Status LastModified by Organization Details LastModified Time None Recorded Advance Directives Directive None Recorded Payers Encounter Date Sequence Insurance Name Policy Number Policy Jameson Covered Member ID Jameson Member ID Guarantor Name 11/21/2020 1 [facility] [facility] [employer] (PPO) Ralf Saleh [id number] Ralf Saleh 06/04/2022 1 [employer] John Saleh 12/31/2022 [facility] Ralf Saleh [id number] Rlaf Saleh 10/03/2023 1 [employer] [facility] Ralf Saleh [id number] Ralf Saleh 11/17/2023 1 [employer] - [facility] (PPO) [id number] Ralf Saleh [id number] Ralf Saleh Notes Date Note Type Note Provider Name and Address Organization Details Recorded Time 3 text/html Back Pain/Injury UCReported bypatient.source of patient informationInformation obtained from patient; Patient arrived at Urgent Care ambulatory; learning styles: visual Location:lower back; pain is not radiating; Happen at work 3 weeks ago while lifting and moving heavy tables. Quality:muscle spasms; felt better now., Severity:pain level 0/10 Duration:started 05/17/2022 Context:work injury; lifting; recent trip to ER Alleviating Factors:analgesics; heat; NSAIDS; rest Aggravating Factors:bending/squatting Previous InjuryNo prior injury to affected body part Prior Imaging:x rayNotes:Patient feeling much better and want to return full duty back to work. 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 Alleviating Factors:nothing gives relief Associated Symptoms:no fever; no fatigue Treatment History:OTC treatment calamine lotion with no improvementNotes:27 year old male presenting for evaluation of a pruritic raised mildly red rash on his chest, abdomen, arms, legs and face getting worse for the past 2 days. Symptoms began after working outside at a golf course. No fever, chills, lip or tongue swelling, shortness of breath, dizziness, GI symptoms. No purulent drainage or red streaking. Eliana Betancourt MD [address] [place], [address], [place] - [facility] 12/31/2022 15:50:50 4 text/html 28 yo male was weed whacking 4 days ago and a rash developed on his arms and legs 3 days ago. The rash is Increasing spread and itching. IVAN GARCIA MD [address] [place], [address], [place] - [facility] 10/04/2023 17:17:37 4 text/html Rash/Skin LesionReported bypatient.source of patient informationInformation obtained from patient; Patient arrived at Urgent Care ambulatory; working in the backyard. Have spreading , itchy , rash bilateral arms, chest , abdomen and legs x 3 days. Location:chest; arms; abdomen; legs Quality:itchy;red;spreading Severity:moderate Duration:3 days Context:recent outdoor activity; no new detergent or skin product; no recent change in medication; no exposure to hair dye; no expsoure to new clothes/jewelry; no recent travel; no recent illness; no pets/animals in home; not affiliated with chemicals/pesticides Alleviating Factors:nothing gives relief Associated Symptoms:no fever; no fatigue Jose Horowitz NP [address] [place], [address], [place] - [facility] 11/28/2023 13:30:38
--- OUTSIDE RECORDS SUMMARY | 2024-06-05 09:32 | XMS_ITS | Encounter Summary ---
Author Organization [facility] Address [address] [place] [address] Care Team Providers Care Director Style Name Role Phone Physician, No Pcp Primary Care Provider Unavaila ble Reason for Referral * Consultation (Routine) - Pending Review Specialty Diagnoses / Procedures Referred By Suri benz Referred To Contact Orthopaedics / Orthopaedic Surgery Diagnoses Acute pain of left knee Loretta Ferrer PA [address] [place] [address] Referral ID Status Reason Start Date Expiration Date Visits Requested Visits Authorized [id number] Pending Review Specialty Services Required 05/21/2024 05/21/2025 1 1 Reason for Visit * Reason Comments Knee Pain C/o Left knee pain a fter slip and fall ice fishing- onset yesterdaY Encounter Details Date Type Department Care Team (Late st Contact Info) Description 05/21/2024 10:37 AM EST - 05/21/2024 11:42 AM EST Emergency [facility] Emergency [address] [place] [id number] Acute pain of left knee (Primary Dx) Discharge Disposition: Home or Self Care Social History Tobacco Use Types Packs/Day Years Used Date Smoking Tobacco: Never Assessed Sex and Gender Information Value Date Recorded Sex Assigned at Not on file Gender Identity Not on file Sexual Orientation Not on file Job Start Date Occupation Industry Not on file Not on file Not on file documented as of this encounter Last Filed Vital Signs Vital Sign Reading [...] Mass Index 22.43 05/21/2024 9:42 AM EST documented in this encounter Medications at Time of Discharge Medication Sig Dispensed Refills Start Date End Date naproxen (NAPROSYN) 500 mg tablet Take 1 tablet (500 mg total) by mouth 2 (two) times a day with meals for 15 days. 30 tablet 05/21/2024 06/05/2024 documented as of this encounter Ordered Prescriptions Prescription Sig Dispensed Refills Start Date End Da te naproxen (NAPROSYN) 500 mg tablet Take 1 tablet (500 mg total) by mouth 2 (two) times a day with meals for 15 days. 30 tablet 05/21/2024 06/05/2024 documented in this encounter Discharge Disposition Disposition Code Departure Means Destination Comment s Home or Self Care documented in this encounter Progress Notes * TIA Phillips - 05/21/2024 9:06 AM EST Emergency Medicine Note Patient Name: Ralf Saleh Initial Evaluation: 05/21/2024 : 1995 Patient's PCP: No primary care provider on file. Emergency Physician: TIA Phillips History of Present Illness Chief Complaint: Chief Complaint Patient presents with Knee Pain C/o Left knee pain after slip and fall ice fishing- onset yesterdaY HPI: This is a 29-year-old male who comes in today complaining of left knee pain. He was ice fishing yesterday when he slipped bending his left knee all the way back when he fell to the ground. Has had pain since. Increased pain with flexion. Denies weakness or paresthesias. He is not take anything for pain at this time. ROS: GENERAL: No fever, no chills, no acute distress OPHTHALMOLOGY: No vision changes, no redness, or discharge ENT: No sore throat , no nosebleed CARDIOVASCULAR: No chest pain, no peripheral edema RESPIRATORY: No dyspnea, no sputum production, and no cough MUSCULOSKELETAL: No myalgias, no back pain, and no neck pain. + Left knee pain GI: No abdominal pain, no nausea, no vomiting, no diarrhea. No black stool, bright red blood per rectum, or constipation. GENITOURINARY: No dysuria, no urgency, no frequency NEUROLOGY: No paresthesias, no weakness, No headache PSYCHIATRIC: No depression, no suicidality, or intent of self-harm DERMATOLOGY: No rash no pruritus IMMUNOLOGY: No immunocompromise HEMATOLOGY: No bleeding, no bruising Previous History Past Medical History: Diagnosis Date Known health problems: none History reviewed. No pertinent surgical history. No family history on file. is allergic to amoxicillin. No current facility-administered medications on file prior to encounter. No current outpatient medications on file prior to encounter. Physical Exam ED Triage Vitals [05/21/24 0942] Temp Heart Rate Resp BP 36.8 ??C (98.2 ??F) 80 18 119/63 SpO2 Temp src Heart Rate Source Patient Position 99 % -- -- -- BP Location FiO2 (%) -- -- General: Well-appearing, well nourished, in no acute distress HEENT: PERRL, EOMI, external ears and nose appear unremarkable, airway is patent Neck: Supple, full range of motion Chest: Clear to auscultation; no evidence of respiratory distress Circulatory: RRR, extremities well perfused Extremities: Normal ROM, No edema. Left knee with mild edema. Increased pain with flexion past 90 degrees. No joint laxity. Increased pain with Apley's grinding test. Skin: Warm and dry Neuro: Alert and oriented, no focal deficits Results Labs Reviewed - No data to display Abnormal Labs Reviewed - No data to display XR Knee 4+ Views Left Final Result FINDINGS/IMPRESSION: Joint spaces are preserved. No fracture or dislocation. No focal soft tissue swelling. Small joint effusion.. -------- FINAL REPORT -------- Dictated By: GRACE FAM Dictated Date: 05/21/2024 09:59 ET Assigned Physician: GRACE FAM Reviewed and Electronically Signed By: GRACE FAM Signed Date: 05/21/2024 10:21 ET Workstation ID: [id number] Transcribed By: Self Edit Transcribed Date: 05/21/2024 09:59 ET I have discussed the incidental/abnormal imaging and/or lab abnormalities with the patient and haveinstructed them the need for further evaluation and workup with their primary care doctor. I have provided the patient with a paper copy of the abnormality. The laboratory results, imaging results and other diagnostic exam results were reviewed in the EMR. EKG Interpretation Critical Care Time None ? Medical Decision Making Medications - No data to display Clinical Impressions as of 05/21/24 1110 Acute pain of left knee Differential to include meniscus tear, contusion, sprain, fracture, low clinical suspicion for ACL/PCL injury X-ray reviewed and reassuring. Symptoms concerning for a possible lateral meniscus tear. This was discussed with the patient. Eliseo wrap applied. Rest, ice, elevate. Patient given Naprosyn for pain. Ortho referral given. Discharged in stable condition. Work note provided. Procedures Procedures Diagnosis 1. Acute pain of left knee Disposition Data Unavailable ED Prescriptions None Physician Attestation TIA Phillips 05/21/24 1104 TIA Phillips 05/21/24 1110 documented in this encounter Plan of Treatment Scheduled Referrals Name Type Priority Associated Diagnoses Order Schedule Ambulatory referral to Orthopedic Surgery Outpatient Referral Routine 1 Occurrence s starting 05/21/2024 until 05/21/2025 documented as of this encounter Procedures Procedure Name Priority Date/Time Associated Diagnosis Comments XR KNEE 4+ VIEWS LEFT STAT 05/21/2024 9:57 AM EST documented in this encounter Results * XR Knee 4+ Views Left (05/21/2024 9:57 AM EST) Anatomical Region Laterality Modality Lower Extremities, Knee Left [facility] Imaging 05/21/2024 9:59 AM EST Impressions 05/21/2024 10:21 AM EST FINDINGS/IMPRESSION: Joint spaces are preserved. ??No fracture or dislocation. ??No focal soft tissue swelling. ??Small joint effusion.. -------- FINAL REPORT -------- Dictated By: GRACE FAM Dictated Date: 05/21/2024 09:59 ET Assigned Physician: GRACE FAM Reviewed and Electronically Signed By: GRACE FAM Signed Date: 05/21/2024 10:21 ET Workstation ID: [id number] Transcribed By: Self Edit Transcribed Date: 05/21/2024 09:59 ET Narrative 05/21/2024 10:21 AM EST XR KNEE 4+ VIEWS LEFT INDICATION: ??Pain TECHNIQUE: XR KNEE 4+ VIEWS LEFT COMPARISON: No priors available. Procedure Note Grace Fam MD - 05/21/2024 XR KNEE 4+ VIEWS LEFT INDICATION: Pain TECHNIQUE: XR KNEE 4+ VIEWS LEFT COMPARISON: No priors available. IMPRESSION: FINDINGS/IMPRESSION: Joint spaces are preserved. No fracture ordislocation. No focal soft tissue swelling. Small joint effusion.. -------- FINAL REPORT -------- Dictated By: GRACE FAM Dictated Date: 05/21/2024 09:59 ET Assigned Physician: GRACE FAM Reviewed and Electronically Signed By: GRACE FAM Signed Date: 05/21/2024 10:21 ET Workstation ID: [id number] Transcribed By: Self Edit Transcribed Date: 05/21/2024 09:59 ET Rowdy Garcia MD IMG XR PROCEDURES documented in this encounter Visit Diagnoses Diagnosis Acute pain of left knee- Primary documented in this encounter Care Teams Director Style Relationship Specialty Start Date End Date Physician, No Pcp PCP - General 05/21/24 documented as of this encounter
== END 2024-06-05 09:36 | disposition home or self-care (01) ==
PROVIDERS: Visit Provider Physician Assistant
DX: M23.92 Unspecified internal derangement of left knee (principal); M25.462 Effusion, left knee
CPT/HCPCS: 20610; 99214

== ENCOUNTER → 2024-06-05 09:07 | Outpatient (BNV) | payer OTHER, SELFPAY | PROVIDERS: Visit Provider Radiology Diagnostic Radiology | DX: M25.562 Pain in left knee (principal) | CPT/HCPCS: 73560 ==

== ENCOUNTER → 2024-06-08 18:42 | Outpatient (BNV) | payer OTHER, SELFPAY | PROVIDERS: Visit Provider Radiology Diagnostic Radiology | DX: M23.92 Unspecified internal derangement of left knee (principal) | CPT/HCPCS: 73721 ==

== ENCOUNTER 2024-06-08 18:46 | Outpatient (REF) | payer OTHER, SELFPAY ==
--- NOTE | ~2024-06-08 | MR_ITS ---
CLINICAL HISTORY: M23.91 - Unspecified internal derangement of left knee Pain and swelling Left knee , s/p fell on ice and landed on left knee Exam: MRI of the left knee without intravenous contrast. Comparison: Radiographs June 05, 2024. Findings: Complete tear of the posterior cruciate ligament. Extensive edema within the soft tissues in the expected location of the posterior cruciate ligament. Increased signal intensity within the mid to distal anterior cruciate ligament without complete disruption of the fibers. Horizontal tear near the junction of the anterior horn and body of the lateral meniscus is identified. No tear of the medial meniscus. Quadriceps tendon and patellar tendon are intact. Medial collateral ligament and lateral collateral complex are within normal limits. No discrete cartilage defects. Large knee joint effusion. Impression: 1. PCL tear. 2. Radial tear near the junction of the anterior horn and body of the lateral meniscus. 3. Low-grade sprain of the distal ACL. 4. Large knee joint effusion. This document has been electronically signed by: Constantin Davis MD on 06/08/2024 19:35:55
== END 2024-06-08 18:47 | disposition home or self-care (01) ==
LOC: HO.MRI 18:46
PROVIDERS: Visit Provider Physician Assistant
DX: M25.462 Effusion, left knee (principal); M23.92 Unspecified internal derangement of left knee
CPT/HCPCS: 73721

== ENCOUNTER 2024-07-02 10:05 | Outpatient (AMB) | payer OTHER, SELFPAY ==
--- NOTE | 2024-07-02 10:40 | A.OFFVIS_ITS ---
Vital Signs 07/02/24 10:44 Height 6 ft 1 in Weight 185 lb BMI 24.4 Intake Visit Reasons: OV - left knee MRI review Intake Note: Ralf is a 29 year old male who presents today for a MRI review of his left knee. Patient is still having continuous pain in his knee which it has gotten a little better but it is still consistent. Allergies amoxicillin Allergy (Verified 07/02/24 10:44) Unknown HPI HPI OV - left knee MRI review: Details: Mr. Saleh is a 29-year-old male who presents to the office today for follow- up of his left knee injury that he sustained on 05/20/24. He was last seen in the office on 06/05/2024 when MRI was ordered. We will discuss the MRI results at today's visit. He reports that he has had some improvement in his pain since his last appointment. However, he still having difficulty with range of motion and weight-bearing exercises. Patient works at a [employer] 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 Range of motion 0 to 90 degrees. NVI. Assessment & Plan Assessment & Plan (1) Complete tear of posterior cruciate ligament of knee: Code(s): S83.529A - Sprain of posterior cruciate ligament of unspecified knee, initial encounter Category: Medical (2) Acute lateral meniscus tear of left knee: Code(s): S83.282A - Other tear of lateral meniscus, current injury, left knee, initial encounter Category: Medical Plan Mr. Saleh is a 29-year-old male who presents to the office today for follow- up of his left knee injury that he sustained on 05/20/24. He was last seen in the office on 06/05/2024 when MRI was ordered. We will discuss the MRI results at today's visit. He reports that he has had some improvement in his pain since his last appointment. However, he still having difficulty with range of motion and weight-bearing exercises. 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 While in the office today MRI imaging was reviewed with Dr. Helton who was available but did not see the patient with me in a cooperative treatment plan was created. MRI of the left knee was obtained on 06/08/2024 and revealed a PCL tear as well as a lateral meniscus tear. Recommendation is for the patient to attend physical therapy to work on range of motion. I would like to see him back in 6 weeks, sooner if needed. Should the meniscal tear continue to be symptomatic would consider arthroscopy. Left knee MRI obtained on 06/08/2024 Impression: 1. PCL tear. 2. Radial tear near the junction of the anterior horn and body of the lateral meniscus. 3. Low-grade sprain of the distal ACL. 4. Large knee joint effusion. Coding Level of Care Code Est Pt Level 4 (96165) Diagnoses Complete tear of posterior cruciate ligament of knee S83.529A Acute lateral meniscus tear of left knee S83.282A
[2024-07-02 10:44] VITALS: BMI 24.4
--- OUTSIDE RECORDS SUMMARY | 2024-07-02 11:15 | XMS_ITS | Clinical Summary ---
Author Organization [facility] Address [address] [place] [address] Phone Care Team Providers Care Order Processing Clerk Name Role Phone Physician, No Pcp Primary Care Provider Unavaila ble Allergies Active Allergy Reactions Criticality Noted Date Comments Amoxicillin Unknown 05/21/2024 Medications naproxen (NAPROSYN) 500 mg tablet Take 1 tablet (500 mg total) by mouth 2 (two) times a day with meals for 15 days. 30 tablet 05/21/2024 Encounters Date Type Department Care Team Description 05/21/2024 10:37 AM EST - 05/21/2024 11:42 AM EST Emergency [facility] Emergency [address] [place] [address] Acute pain of left knee (Primary Dx) Discharge Disposition: Home or Self Care from Last 3 Months Medical History Medical History Date Comments Known health problems: none Social History Tobacco Use Types Packs/Day Years Used Date Smoking Tobacco: Never Assessed Sex and Gender Information Value Date Recorded Sex Assigned at Not on file Legal Sex Male 6:17 AM EST Gender Identity Not on file Sexual Orientation Not on file Obstetrics History Last Filed [...] patient's age to complete this topic Meningococcal B Vacine Aged Out No lo nger eligible based on patient's age to complete [...] Laterality Modality Lower Extremities, Knee Left Radiogra phic Imaging 05/21/2024 9:59 AM EST Impressions 05/21/2024 10:21 AM EST FINDINGS/IMPRESSION: Joint spaces are preserved. ??No fracture or dislocation. ??No focal soft tissue swelling. ??Small joint effusion.. -------- FINAL REPORT -------- Dictated By: GRACE LEE Dictated Date: 05/21/2024 09:59 ET Assigned Physician: GRACE LEE Reviewed and Electronically Signed By: GRACE LEE Signed Date: 05/21/2024 10:21 ET Workstation ID: [id number] Transcribed By: Self Edit Transcribed Date: 05/21/2024 [...] Signed Date: 05/21/2024 10:21 ET Workstation ID: [id number] Transcribed By: Self Edit Transcribed Date: 05/21/2024 09:59 ET Rowdy Garcia MD IMG XR PROCEDURES Final R esult from Last 3 Months Insurance [employer] Care Teams Order Processing Clerk Relationship Specialty Start Date End Date Physician, No Pcp PCP - General 05/21/24
--- OUTSIDE RECORDS SUMMARY | 2024-07-02 11:15 | XMS_ITS | Data Portability ---
Author Organization [facility], [address] Address [address] [place] [address] Care Team Providers Care Carbonating Stone Cleaner Name Role Phone DEEPA PEREZ Backpackers Manager [phone] DEEPA PEREZ Backpackers Manager DEEPA PEREZ Backpackers Manager [phone] Assessment No assessment recorded. Plan of Treatment Reminders Order Date Submit Date Provider Last Modified By Organization Details Last Modified Time Details Appointments None recorded. Lab None recorded. Referral None recorded. Procedures None recorded. Surgeries None recorded. Imaging None recorded. Medication Orders prednisone 10 mg tablet 2023 024 [id number], [address] [place], [address], 4 09:17:50 hydroxyzine HCl 25 mg tablet 2023 024 [id number], [address] [place], [address], 4 09:17:51 prednisone 20 mg tablet 2023 024 [id number], [address] [place], [address], 4 08:55:50 prednisone 10 mg tablet 2022 024 [facility], [address] [place], [address], 4 12:21:41 Patient TargetsNo targets recorded. Patient Instructions Encounter Date Encounter Id Patient Instructions Last Modified By Organization Details Last Modified Time 06/04/2022 [id number] Drink lots of fluids. Take medications as [...] Department. [email or web address] Not available 06/04/2022 16:18:39 12/31/2022 [id number] poison [place], [place], [place]: care instructions [email or web address] Not available 12/31/2022 15:43:46 poison [place] education [email or web address] Not available 12/31/2022 15:43:46 Take the prednisone [...] chills, spreading skin redness or purulent drainage. Not available 12/31/2022 15:45:28 10/03/2023 [id number] poison [place], [place], and [place]: care instructions [email or web address] Not available 10/03/2023 14:19:41 poison [place] education [email or web address] Not available 10/03/2023 14:19:41 You can take ove r the counter tylenol or ibuprofen per package instructions for the pain. See printed instructions. Follow-up with your doctor if no improvement in 1 week. Seek Emergency Medical evaluation for any worsening symptoms. [email or web address] Not available 10/03/2023 14:21:21 Reason for Referral None Reported. Problems Name Problem SNOMED Code Status Onset Date Resolution Date Notes Provider Name and Address Organization Details Recorded Time Contact dermatitis caused by urushiol from [place] poison [place] [id number] Active 024 Jose Horowitz, LOGGING SHOVEL OPERATOR [address] [place], [address] [facility] [place] - [facility] 4 09:09:21 Problem [...] Name and Address Organization Details Recorded Time 000763 amoxicill in medicatio n Not available Not available unabletoasse ss 06/04/2022 723 RxNorm DUC BENNIE [facility], [place] - [facility] 3 15:45:08 Medications [...] t Available Vitals Date Recorded Body height Body mass index (BMI) Body weight Respiratory rate Body temperature Heart rate Pain severity - 0-10 verbal numeric rating [Score] - Reported Oxygen saturation Oxygen saturation in Arterial blood by Pulse oximetry Systolic blood pressure Diastolic blood pressure Provider Name and Address Organization Details Last Updated DateTime 3 185.42 cm 21.8 kg/m2 53478.7 4 g 18 /min 98 [degF] 64 /min 0 100 % 100 % 118 mm[Hg] 78 mm[Hg] Silvana Lang [place] - [facility] 3 15:00:53 Date Recorded Body height Body mass index (BMI) Body weight Pain severity - 0-10 verbal numeric rating [Score] - Reported Body temperature Respiratory rate Heart rate Oxygen saturation Oxygen saturation in Arterial blood by Pulse oximetry Systolic blood pressure Diastolic blood pressure Provider Name and Address Organization Details Last Updated DateTime 4 185.42 cm 22.4 kg/m2 13500.7 g 0 98.4 [degF] 18 /min 78 /min 98 % 98 % 119 mm[Hg] 71 mm[Hg] Christine Lewis [place] - [facility] 4 12:23:48 Date Recorded Body height Body mass index (BMI) Body weight Pain severity - 0-10 verbal numeric rating [Score] - Reported Respiratory rate Oxygen saturation Oxygen saturation in Arterial blood by Pulse oximetry Heart rate Body temperature Systolic blood pressure Diastolic blood pressure Provider Name and Address Organization Details Last Updated DateTime 3 185.42 cm 21.8 kg/m2 44528.7 4 g 0 19 /min 99 % 99 % 79 /min 98.7 [degF] 109 mm[Hg] 65 mm[Hg] DUC AVERY [place] - [facility] 3 15:49:00 Date Recorded Body height Body mass index (BMI) Body weight Pain severity - 0-10 verbal numeric rating [Score] - Reported Oxygen saturation Oxygen saturation in Arterial blood by Pulse oximetry Heart rate Respiratory rate Body temperature Systolic blood pressure Diastolic blood pressure Provider Name and Address Organization Details Last Updated DateTime 4 185.42 cm 23.1 kg/m2 04080.6 6 g 0 98 % 98 % 85 /min 18 /min 98.8 [degF] 100 mm[Hg] 54 mm[Hg] Queta Kelly [place] - [facility] 4 08:57:11 Social History Question Answer Notes LastModified by Organizat ion Details LastModified Time Tobacco Smoking Status Never Smoker DUC renee [place] - [facility] 06/04/2022 15:46:41 What Is Your Level Of Alcohol Consumption? Occasional [email or web address] Information not available 10/03/2023 How Many Times Per Week Do You Consume Alcohol? Less Than 1 Time Per Week Information not available 10/03/2023 Are You Currently Employed? Yes [employer] Information not available 06/04/2022 Have You Had A Flu Shot This Season? No [email or web address] Information not available 11/17/2023 Have You Had Direct Contact, Or Contact During Intimacy, With Monkeypox Rash, Scabs, Or Body Fluids From A Person With Monkeypox? No Information not available 10/03/2023 What Was The Date Of Your Most Recent Tobacco Screening? 11/17/2023 [email or web address] Information not available 11/17/2023 What Is Your [...] Details Recorded Time Tdap 10/19/2020 completed TIA Mruguia - [facility] 12/31/2022 15:01:01 Past Encounters Encounter ID Performer Location Encounter Start Date Encounter Closed Date Diagnosis/Indication Diagnosis SNOMED-CT Code Diagnosis ICD10 Code Diagnosis Note [id number] [address] [facility] [place] [address] 10/19/2020 13:41:28 10/19/2020 15:30:57 [id number] [address] [facility] [address] 11/21/2020 12:10:07 11/21/2020 15:09:56 [id number] Jose Horowitz NP [address] [place] [address] 06/04/2022 14:28:32 06/04/2022 16:24:30 Acute low back pain 639970321 M54.50 feeling much better . able to return full duty back to work. [id number] Eliana Betancourt [facility] [address] [place] [address] 12/31/2022 14:37:39 12/31/2022 15:47:31 Contact dermatitis caused by urushiol from [facility] [place] 003070092 L25.5 [id number] IVAN GARCIA [facility] [address] [facility] [address] [facility] [place] [address] 10/03/2023 11:58:55 10/03/2023 14:23:45 Contact dermatitis caused by urushiol from [facility] [place] 234951560 L25.5 Benadryl Gel for itching:Ap ply to affected area 3 times a day as needed for itching for 3-5 days. [id number] Jose Horowitz [facility] [address] [facility] [facility] [address] [facility] [address] 11/17/2023 08:51:17 11/17/2023 09:19:05 Contact dermatitis caused by urushiol from [facility] [place] 320155110 L25.5 Poison [place] mac Rash The contact dermatitis usually follows [...] Jameson Member ID Guarantor Name 11/21/2020 1 [facility] [employer] - [employer] (PPO) Ralf Saleh [id number] Ralf Saleh 06/04/2022 1 [employer] John kenney Delfino 12/31/2022 1 [facility] [facility] [employer] - [employer] (PPO) Ralf Saleh [id number] Ralf Saleh 10/03/2023 1 [employer] - [facility] Ralf Saleh [id number] Ralf Saleh 11/17/2023 1 [employer] - [facility] (PPO) [id number] Ralf Saleh [id number] Ralf Saleh Notes Date Note Type Note [...] Jose Horowitz NP [address] [place], [address], [place] - [facility] 06/04/2022 16:20:38 3 [...] Eliana Betancourt MD [address] [place], [address], [place] - [facility] 12/31/2022 15:50:50 4 text/html 28 yo male was weed whacking 4 days ago and a rash developed on his arms and legs 3 days ago. The rash is Increasing spread and itching. IVAN GARCIA MD [address] [place], [address], [place] - [facility] 10/04/2023 17:17:37 4 [...] fever; no fatigue Jose Horowitz NP [address] [place], [address], [place] - [facility] 11/28/2023 13:30:38
== END 2024-07-02 11:10 | disposition home or self-care (01) ==
PROVIDERS: Visit Provider Physician Assistant
DX: S83.522A Sprain of posterior cruciate ligament of left knee, initial encounter (principal); S83.282A Other tear of lateral meniscus, current injury, left knee, initial encounter
CPT/HCPCS: 99213

== ENCOUNTER → 2024-07-02 10:05 | Outpatient (BNVA) | payer OTHER, SELFPAY | PROVIDERS: Visit Provider Physician Assistant ==

== ENCOUNTER 2024-08-14 11:00 | Outpatient (RCR) | payer OTHER, SELFPAY ==
--- NOTE | 2024-07-10 12:53 | MHC.PT.EP ---
[facility] [place] Office [place] Office [place] Office [address] [phone] F: [phone] F: [phone] F: [phone] F: [phone] Physical Therapy Plan of Care Date of Evaluation: 07/10/24 Date of Surgery: NA Diagnosis: ACUTE LATERAL MENISCUS TEAR OF L KNEE Assessment: Pt IS 29 YO M REFERRED TO PT FROM ORTHO (STACIE) WITH L KNEE PCL TEAR AND LAT MENISCUS TEAR WHICH HAPPENED 05/20/24 WITH FALL ON L KNEE ON ICE WHILE ICE FISHING. PRESENTS TO PT WITH DECREASED L KNEE ROM, ANTALGIC GT, PAIN, DECREASED LE STRENGTH. 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 HAS FU WITH ORTHO IN 6 WKS TO ASSESS IF SURGERY NEEDED (BASED ON PROGRESS IN PT) Frequency and Duration: The patient will be seen 2X/WK X 6 WKS Short Term Goals: 1. INCREASED AWARENESS KNEE CARE 2. IMPROVED GT PATTERN (DECREASED LIMP) 3. I HEP WITH DC EX PLAN 4. I TAPING Intern [employer] Goals: 1. INCREASED L KNEE ROM 0-125 2. DECREASED L KNEE PAIN AT LEAST 50% WITH ADLS 3. RTW Treatment Plan: Modalities to reduce pain, spasms and effusion. Manual therapy to restore motion and function. Therapeutic exercise to improve strength and flexibility. Neuromuscular re-education for posture and balance. Therapeutic activities to return to functional activities of daily living. Electronically signed by: SUKHWINDER FRANCO PT Please sign and return to therapist. Thank you for your referral.
--- NOTE | 2024-10-10 09:43 | MHC.PT.DC ---
[facility] [place] [facility] [place] [facility] [place] [facility] [address] Awilda Brewster [address] [phone] F: [phone] F: [phone] F: [phone] F: [phone] Physical Therapy Discharge Report Diagnosis: ACUTE LATERAL MENISCUS TEAR OF L KNEE Date of Surgery: NA Date of Evaluation: 07/10/24 Date of Discharge: 10/10/24 Treatments to Date: 11 Cancellations to Date: No Shows to Date: Discharge Status: Achieved Goals Improved Function Independent with HEP Patient Elected to Stop Discharge Summary: Pt SEEN FOR INIT EVAL AND 10 FU VISITS. PROGRESSING WELL. PER ASSESSMENT FROM LAST SESSION ON 08/14/24 SORE AFTER CALF WORK DISTAL QUAD AND PROX GASTROC MM SORENESS AFTER SESSION. CONT PT FOR HIGHER LEVEL PROP WORK, ASSESS ORTHO VISIT AND BTWP Pt THEN NO SHOWED LAST 2 SCHEDULED PT APPTS. PER RECORD, HAD FU ORTHO VISIT ON 08/14 WITH SWETA WEBER. PER THAT PLAN 'Plan Mr. Saleh is a 29-year-old male who presents the office today for routine follow-up of a left knee lateral meniscus tear as well as MCL tear. He has been attending physical therapy has noticed improvements. He would like to continue with non operative intervention and is interested in a knee brace at this time. While in the office today, we discussed continuation of physical therapy until all sessions are completed. I also provided the patient with a wrap pop knee brace off the shelf. He will use this during activities. He will follow up with Orthopedics p.r.n., sooner if needed.' Electronically signed by: SUKHWINDER FRANCO PT Please sign and return to therapist. Thank you for your referral.
== END 2024-10-10 09:43 | disposition home or self-care (01) ==
LOC: HO.PT 11:00
PROVIDERS: Visit Provider Physician Assistant
DX: S83.282D Other tear of lateral meniscus, current injury, left knee, subsequent encounter (principal); S83.52 Sprain of posterior cruciate ligament of knee; X58.XXXD Exposure to other specified factors, subsequent encounter
CPT/HCPCS: 97110; 97162; 97530; 97535

== ENCOUNTER 2024-08-14 12:33 | Outpatient (AMB) | payer OTHER, SELFPAY ==
--- NOTE | 2024-08-14 12:42 | A.OFFVIS_ITS ---
Vital Signs 08/14/24 12:47 Height 6 ft 1 in Weight 185 lb BMI 24.4 Intake Visit Reasons: OV - left knee- 6 week follow up Intake Note: Rianna is a 29 year old male who presents today for a evaluation of his left knee pain, DOI 05/20/24. Patient reports he is doing better, he is still working with physical therapy. patient notices that he gets sore at times. 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 Allergies amoxicillin Allergy (Verified 08/14/24 12:47) Unknown HPI HPI OV - left knee- 6 week follow up: Details: Mr. Saleh is a 29-year-old male who presents the office today for routine follow-up of a left knee lateral meniscus tear as well as MCL tear. He has been attending physical therapy has noticed improvements. He would like to continue with non operative intervention and is interested in a knee brace at this time. 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 Range of motion 0 to 120 degrees. NVI. Assessment & Plan Assessment & Plan (1) Acute lateral meniscus tear of left knee: Code(s): S83.282A - Other tear of lateral meniscus, current injury, left knee, initial encounter Category: Medical (2) Complete tear of posterior cruciate ligament of knee: Code(s): S83.529A - Sprain of posterior cruciate ligament of unspecified knee, initial encounter Category: Medical Plan Mr. Saleh is a 29-year-old male who presents the office today for routine follow-up of a left knee lateral meniscus tear as well as MCL tear. He has been attending physical therapy has noticed improvements. He would like to continue with non operative intervention and is interested in a knee brace at this time. While in the office today, we discussed continuation of physical therapy until all sessions are completed. I also provided the patient with a wrap pop knee brace off the shelf. He will use this during activities. He will follow up with Orthopedics p.r.n., sooner if needed. Coding Level of Care Code Est Pt Level 3 (78248) Diagnoses Acute lateral meniscus tear of left knee S83.282A Complete tear of posterior cruciate ligament of knee S83.529A
[2024-08-14 12:47] VITALS: BMI 24.4
--- OUTSIDE RECORDS SUMMARY | 2024-08-14 15:08 | XMS_ITS | Data Portability ---
Author Organization [facility] [employer] [facility], [address] Address [address] [place] [address] Care Team Providers Care Wide Load Escort Name Role Phone DEEPA PEREZ Mandarin Teacher [phone] DEEPA PEREZ Mandarin Teacher DEEPA PEREZ Mandarin Teacher Assessment No assessment recorded. Plan of Treatment Reminders Order Date Submit Date Provider Last Modified By Organization Details Last Modified Time Details Appointments None recorded. Lab None recorded. Referral None recorded. Procedures None recorded. Surgeries None recorded. Imaging None recorded. Medication Orders prednisone [address] [id number], [address] [place], [address], 4 09:17:50 hydroxyzine HCl 25 mg tablet [address] [facility], [address] [place], [address], 4 09:17:51 prednisone 20 mg tablet [address] [facility], [address] [place], [address], 4 08:55:50 prednisone 10 mg tablet [address] [facility], [address] [place], [address], 4 12:21:41 Patient TargetsNo targets recorded. Patient Instructions Encounter Date Encounter Id Patient Instructions Last Modified By Organization Details Last Modified Time 06/04/2022 [id number] Drink lots of fluids. Take medications as [...] Department. [email or web address] Not available 06/04/2022 16:18:39 12/31/2022 [id number] poison [place], [place], [place]: care instructions Not available 12/31/2022 15:43:46 poison [place] education [email or web address] Not available 12/31/2022 15:43:46 Take the prednisone [...] chills, spreading skin redness or purulent drainage. [email or web address] Not available 12/31/2022 15:45:28 10/03/2023 [id number] poison [place], [place], and [place]: care instructions [id number] Not available 10/03/2023 14:19:41 poison [place] education [id number] Not available 10/03/2023 14:19:41 You can take ove r the counter tylenol or ibuprofen per package instructions for the pain. See printed instructions. Follow-up with your doctor if no improvement in 1 week. Seek Emergency Medical evaluation for any worsening symptoms. [id number] Not available 10/03/2023 14:21:21 Reason for Referral None Reported. Problems Name Problem SNOMED Code Status Onset Date Resolution Date Notes Provider Name and Address Organization Details Recorded Time Contact dermatitis caused by urushiol from [employer] poison [place] 538255452 Active 024 Jose Horowitz, SAT INSTRUCTOR [address] [place], [address] [facility] [place] - [facility] 4 09:09:21 Problem [...] Name and Address Organization Details Recorded Time 910388 amoxicill in medicatio n Not available Not available unabletoasse ss 06/04/2022 723 RxNorm DUC BENNIE [facility] [place] - [facility] 3 15:45:08 Medications [...] Updated DateTime 3 185.42 cm 21.8 kg/m2 42724.7 4 g 18 /min 98 [degF] 64 [...] Updated DateTime 4 185.42 cm 22.4 kg/m2 82171.7 g 0 98.4 [degF] 18 /min 78 /min 98 % 98 % 119 mm[Hg] 71 mm[Hg] Christine Lewis [facility] - [facility] 4 12:23:48 Date Recorded Body height Body mass index (BMI) Body weight Pain severity - 0-10 verbal numeric rating [Score] - Reported Respiratory rate Oxygen saturation Oxygen saturation in Arterial blood by Pulse oximetry Heart rate Body temperature Systolic blood pressure Diastolic blood pressure Provider Name and Address Organization Details Last Updated DateTime 3 185.42 cm 21.8 kg/m2 06609.7 4 g 0 19 /min 99 % 99 % 79 /min 98.7 [degF] 109 mm[Hg] 65 mm[Hg] DUC AVERY [facility] - [facility] 3 15:49:00 Date Recorded Body height Body mass index (BMI) Body weight Pain severity - 0-10 verbal numeric rating [Score] - Reported Oxygen saturation Oxygen saturation in Arterial blood by Pulse oximetry Heart rate Respiratory rate Body temperature Systolic blood pressure Diastolic blood pressure Provider Name and Address Organization Details Last Updated DateTime 4 185.42 cm 23.1 kg/m2 09463.6 6 g 0 98 % 98 % 85 /min 18 /min 98.8 [degF] 100 mm[Hg] 54 mm[Hg] Queta Kelly CT - [facility] 4 08:57:11 Social History [...] Had A Flu Shot This Season? No [email or web address] Information not available 11/17/2023 Have You Had Direct Contact, Or Contact During Intimacy, With Monkeypox Rash, Scabs, Or Body Fluids From A Person With Monkeypox? No Information not available 10/03/2023 What Was The Date Of Your Most Recent Tobacco Screening? 11/17/2023 [email or web address] Information not available 11/17/2023 What Is Your [...] SNOMED-CT Code Diagnosis ICD10 Code Diagnosis Note [id number] [address] [place] [address] 10/19/2020 13:41:28 10/19/2020 15:30:57 [id number] [address] [place] [address] 11/21/2020 12:10:07 11/21/2020 15:09:56 [id number] Jose Horowitz NP [address] [place] [address] 06/04/2022 14:28:32 06/04/2022 16:24:30 Acute low back pain 877488040 M54.50 feeling much better . able to return full duty back to work. [id number] Eliana Betancourt MD [address] [place] [address] 12/31/2022 14:37:39 12/31/2022 15:47:31 Contact dermatitis caused by urushiol from [employer] poison [place] 749156931 L25.5 [id number] IVAN GARCIA MD [address] [facility] [address] [place] [address] 10/03/2023 11:58:55 10/03/2023 14:23:45 Contact dermatitis caused by urushiol from [employer] poison [place] 695996239 L25.5 Benadryl Gel for itching:Ap ply to affected area 3 times a day as needed for itching for 3-5 days. [id number] Jose Horowitz NP [address] [place] [address] 11/17/2023 08:51:17 11/17/2023 09:19:05 Contact dermatitis caused by urushiol from [employer] poison [place] 340908069 L25.5 Poison [place] mac Rash The contact dermatitis usually follows [...] Jameson Member ID Guarantor Name 11/21/2020 1 [facility] (PPO) Ralf Saleh [id number] Ralf aSleh 06/04/2022 1 [employer] Isidrojordinabram kenney Delfino 12/31/2022 1 [facility] (PPO) Ralf Saleh [id number] Ralf Saleh 10/03/2023 1 [employer] [facility] Ralf Saleh [id number] Ralf Saleh 11/17/2023 1 [email or web address] - [facility] (PPO) [id number] Ralf Saleh [id number] Ralf Saleh Notes Date Note Type Note [...] back to work. Jose Horowitz NP [address] [facility] [place], [address], [place] - [facility] 06/04/2022 16:20:38 [...] Eliana Betancourt MD [address] [place], [address], [place] - [facility] 12/31/2022 15:50:50 4 text/html 28 yo male was weed whacking 4 days ago and a rash developed on his arms and legs 3 days ago. The rash is Increasing spread and itching. IVAN GARCIA MD [address] [place], [address], [place] - [facility] 10/04/2023 17:17:37 [...] Horowitz NP [address] [place], [address], [place] - [facility] 11/28/2023 13:30:38
--- OUTSIDE RECORDS SUMMARY | 2024-08-14 15:08 | XMS_ITS | Clinical Summary ---
Author Organization [facility] Address [address] [place] [address] Phone Care Team Providers Care Fur Pointer Name Role Phone Tony Castano DO Primary Care Provider [phone] Allergies Active Allergy Reactions Criticality Noted Date Comments Amoxicillin Unknown 05/21/2024 Encounters Date Type Department Care Team Description 05/21/2024 10:37 AM EST - 05/21/2024 11:42 AM EST Emergency [facility] Emergency [address] [place] [address] Acute pain of left knee [...] age to complete this topic Meningococcal B Vaccine Aged Out No l onger eligible based on patient's age to complete [...] Laterality Modality Lower Extremities, Knee Left [facility] Imaging 05/21/2024 9:59 AM EST Impressions 05/21/2024 10:21 AM EST FINDINGS/IMPRESSION: Joint spaces are preserved. ??No fracture or dislocation. ??No focal soft tissue swelling. ??Small joint effusion.. -------- FINAL REPORT -------- Dictated By: GRACE LEE Dictated Date: 05/21/2024 09:59 ET Assigned Physician: GRACE LEE Reviewed and Electronically Signed By: GRACE LEE Signed Date: 05/21/2024 10:21 ET Workstation ID: [id number] Transcribed By: Self Edit Transcribed Date: 05/21/2024 [...] Signed Date: 05/21/2024 10:21 ET Workstation ID: [id number] Transcribed By: Self Edit Transcribed Date: 05/21/2024 09:59 ET Rowdy Garcia MD IMG XR PROCEDURES Final R esult from Last 3 Months Insurance [employer] Care Teams Fur Pointer Relationship Specialty Start Date End Date Tony Castano DO [address] [place] [id number] PCP - General Internal Medicine 07/03/24
== END 2024-08-14 12:59 | disposition home or self-care (01) ==
LOC: HO.HOS 12:33
PROVIDERS: Visit Provider Physician Assistant
DX: S83.282A Other tear of lateral meniscus, current injury, left knee, initial encounter (principal); S83.412A Sprain of medial collateral ligament of left knee, initial encounter
CPT/HCPCS: 99213